=== PATIENT | female | born 1970 | race Caucasian/White ===

== ENCOUNTER 2020-05-21 18:14 | Emergency (ER) | payer MEDICAID, SELFPAY ==
[~2020-05-21] VITALS: Ht 149.9 cm; Wt 90.7 kg
[2020-05-21 19:05] VITALS: BP_SYST 117
[2020-05-21 20:55] VITALS: BP_SYST 117
== END 2020-05-21 20:55 | disposition home or self-care (01) ==
LOC: SED 18:14
DX: U07.1 COVID-19 (principal); J18.9 Pneumonia, unspecified organism; Z88.0 Allergy status to penicillin; Z88.6 Allergy status to analgesic agent
CPT/HCPCS: 71045; 93005; 99283